=== PATIENT | female | born 1985 | race Caucasian/White ===

== ENCOUNTER 2019-07-05 12:56 | Outpatient (CLI) | payer BC, SELFPAY | END 2019-07-05 12:57 | disposition home or self-care (01) | LOC: ANHSURGERY 12:58 | PROVIDERS: Visit Provider Obstetrics & Gynecology | DX: R10.2 Pelvic and perineal pain (principal) | CPT/HCPCS: 36415; 86850; 86900; 86901 ==

== ENCOUNTER 2019-07-06 00:55 | Day surgery (SDC) | payer BC, SELFPAY ==
[2019-06-29 09:18] VITALS: BMI 24.3
--- NOTE | 2019-07-03 15:46 | PM.IMHP ---
H&P: HPI History of Present Illness Chief complaint: Pelvic Pain Narrative: Clarita Moreno is a 33 year old female who was admitted for diagnostic laparoscopy. She complains of pain fullness and dyspareunia. She is status post hysterectomy with ovaries remain. Ultrasound was unhelpful. Risks and benefits of this procedure reviewed. She read the [employer] handout entitled laparoscopy. She had all questions answered. She asked to proceed. Review of Systems Review of Systems: All systems reviewed & are unremarkable except as noted in HPI and below Meds Home Medications and Allergies Home Medications Medication Instructions Recorded Confirmed Type calcium carbonate [Calcium 600] 600 mg PO DAILY 06/29/19 06/29/19 History cholestyramine (with sugar) 4 g PO HS 06/29/19 06/29/19 History multivitamin 1 tablet PO DAILY 06/29/19 06/29/19 History omeprazole 20 mg PO DAILY 06/29/19 06/29/19 History Allergies Allergy/AdvReac Type Severity Reaction Status Date / Time Penicillins Allergy Severe Anaphylactic Unverified 06/29/19 09:19 Shock sucralfate Allergy Unknown MOUTH Verified 06/29/19 09:19 SWELLING codeine AdvReac Unknown NAUSEA, Verified 06/29/19 09:19 SHAKY Exam Const: General: no acute distress Eyes: General: appearance normal, both eyes and all related structures Neck: Neck: supple and no JVD Thyroid: thyroid normal Resp: Effort & Inspection: normal respiratory effort Auscultation: clear to auscultation bilaterally Cardio: Rate: regular rate Rhythm: regular rhythm GI: Inspection: non-distended GI Palp: Yes Soft to palpation, No Tenderness to palpation present (GI) and No Guarding due to palpation present (GI) Auscultation: normal bowel sounds : External Female Exam: normal external appearance Speculum Exam - Vagina: normal appearance of the vagina Speculum Exam - Cervix: Cervix absent Bimanual exam- vagina & uterus: uterus absent Bimanual Exam- Adnexa, other: tender (bilaterally) Skin: General skin exam: no rashes or lesions noted Extrem: General: normal to inspection and no edema Psych: Mental Status: mental status grossly normal Affect: normal affect Assessment and Plan Additional Plan Impression: Pelvic pain in a patientand status post hysterectomy Plan: Diagnostic laparoscopy
[2019-07-06] VITALS (11 sets, daily range): BP systolic 109–125; BP diastolic 71–98; PULSE 70–110; RESP 14–21; TEMP 36.8–37.3; O2SAT 99–100
--- NOTE | 2019-07-06 07:01 | WPDHPUPDATE1 ---
History and Physical Update Update Date/Time: 07/06/19 07:01 History and Physical has been reviewed, including an updated exam of the patient. There are NO changes in the patient's condition. Risks, benefits, and alternatives have been discussed and questions answered. Patient agrees to proceed with procedure.
--- NOTE | 2019-07-06 08:45 | P.PNAN_ITS ---
Anes - Initial Pre Proc Eval Procedure: Operation Date: 07/06/19 10:00 Proposed Procedures p Diagnostic Laparoscopy - Abdirashid Galicia MD Date/Time: 07/06/19 08:45 Surgeon: Abdirashid Galicia MD Pre Op Diagnosis: Pelvic Pain Patient Data Age: 33 Gender: F Height: 1.63 m Weight: 64.41 kg Allergies Allergy/AdvReac Type Severity Reaction Status Date / Time Penicillins Allergy Severe Anaphylactic Unverified 06/29/19 09:19 Shock sucralfate Allergy Unknown MOUTH Verified 06/29/19 09:19 SWELLING codeine AdvReac Unknown NAUSEA, Verified 06/29/19 09:19 SHAKY Home Medications Medication Instructions Recorded Confirmed Type calcium carbonate [Calcium 600] 600 mg PO DAILY 06/29/19 06/29/19 History cholestyramine (with sugar) 4 g PO HS 06/29/19 06/29/19 History multivitamin 1 tablet PO DAILY 06/29/19 06/29/19 History omeprazole 20 mg PO DAILY 06/29/19 06/29/19 History hydrocodone-acetaminophen [[place]] 1 tablet PO Q4H PRN #30 tablet 07/06/19 Rx Patient hx anesthesia problems: none Family hx anesthesia problems: none [facility] Past Medical History Medical History (Updated 07/06/19 @ 08:46 by Oneil Hernandez DO) Endometriosis Epilepsy history of, no issues in years other than facial tics. No medications GERD (gastroesophageal reflux disease) Hypoglycemia Surgical History Surgical History (Updated 07/05/19 @ 08:50 by Oneil Hernandez DO) History of cholecystectomy History of hysterectomy Anes - Eval Final PreProcedure Day of Procedure 07/06/19 08:45 Patient weight: normal Heart: regular rate and rhythm Lungs: clear to auscultation and normal air movement Airway: Mallampati scale class II Neurological: alert and oriented Last oral intake: >/= 8 hours ASA classification: III Emergent: no Anesthetic plan: proceed Anesthesia type and monitoring: general ETT and standard monitoring Informed Consent: The patient's anesthetic plan and its attendant risks and benefits were discussed with the patient/family/POA. Questions were solicited and answers provided to the satisfaction of the patient/family/POA.
[2019-07-06] MEDS: LACTATED RINGERS 1,000 ML 30 ML IV CONT ×2 (09:00→10:32)
[2019-07-06] MEDS: KETOROLAC 30 MG/ML VIAL (*BKC) IV PUSH (10:17)
--- NOTE | 2019-07-06 10:20 | PM.PROC ---
Procedure Note - Detailed Date of procedure: 07/06/19 Pre-op diagnosis: Pelvic Pain Surgeon: Abdirashid Galicia MD Postop diagnosis: Pelvic pain, endometriosis, adhesions Procedure: Laparoscopy, destruction of endometriosis, lysis of adhesions EBL: 5cc Anesthesia: General endotracheal Findings: Absent uterus. Multiple adhesions. Several areas of powder burn endometriosis. Ovaries appeared within normal limits appendix appeared within normal limits Complications: None Description of procedure: Under general endotracheal anesthesia weighted speculum was placed in posterior fornix of vagina. Sponge stick was placed in the vagina. Bladder was emptied of clear urine. The weighted speculum removed. Gloves were changed. An infraumbilical incision made and the Veress needle passed in the abdomen. The abdomen was filled with CO2 gas [id number]. 5mm trocar advanced under direct visualization assuring no injury. The patient was placed in Trendelenburg and a suprapubic incision made. The 5mm trocar was advanced under direct visualization assuring no injury. About 5cc of serosanguineous fluid was seen in this was irrigated drain. Multiple areas of endometriosis were seen along the right uterosacral ligament and near the area where the previous incisions were made from the uterus. Multiple adhesions were seen on the left completely encasing left ovary and tube. These were sharply dissected till clear. Irrigation was undertaken till clear. No other abnormalities were seen. The lower site removed. The gas removed from the abdomen. The incisions closed with 4 O Monocryl and glue. The patient was awakened and went to recovery in satisfactory condition. All sponge, needle, instrument counts were correct. There were no immediate complications
[2019-07-06] MEDS: MIDAZOLAM HCL 2 MG/2 ML VIAL IV PUSH (11:24)
[2019-07-06] MEDS: ONDANSETRON INJ 4 MG/2 ML VIAL IV PUSH (11:26)
--- NOTE | 2019-07-06 11:26 | SUR.PHASEI ---
PT COUGHING SINCE SHE WOKE FROM SURGERY. PT STATED HER THROAT IS IRRITATED. HOB ELEVATED. LUNGS SOUNDS CLEAR. OXYGEN LEVELS 100 % ON RA. PT GIVEN A SIP OF WATER. 1110- CALLED DR. SEGOVIA AND UPDATED HIM ABOUT COUGHING. HE STATED TO GIVE VERSED 1 MG IVP. HE STATED HER VOCAL CORDS COULD BE IRRITATED. 1120- DR. SEGOVIA BEDSIDE TO SEE PT AND LISTEN TO BREATH SOUNDS. DR. SEGOVIA SPOKE WITH PT. DR. SEGOVIA ORDERED 1 MG OF VERSED WHILE BEDSIDE. VSS
--- NOTE | 2019-07-06 11:57 | SUR.PHASEI ---
1155- PT AWAKE. 2 SURGICAL SITES ON ABD DRY AND INTACT. POLLY PAD DRY. MESH PANTIES PLACED ON PT
== END 2019-07-06 13:10 | disposition home or self-care (01) ==
PROVIDERS: Visit Provider Obstetrics & Gynecology
PROC: (CPT 49320; principal; 2019-07-06 10:00)
DX: N80.3 Endometriosis of pelvic peritoneum (principal); N80.1 Endometriosis of ovary; N80.2 Endometriosis of fallopian tube; N73.6 Female pelvic peritoneal adhesions (postinfective); R10.2 Pelvic and perineal pain; K21.9 Gastro-esophageal reflux disease without esophagitis
CPT/HCPCS: 58662; A9270; J1100; J1885; J2250; J2405; J2704; J3010; J7120

== ENCOUNTER 2019-07-31 06:42 | Outpatient (CLI) | payer BC, SELFPAY ==
--- NOTE | ~2019-07-31 | MR_ITS ---
EXAMINATION: MR brain/brain stem wo/w con DATE: 07/31/2019 09:51 INDICATION: Epilepsy. Nonspecific spells. TECHNIQUE: Magnetic resonance imaging (MRI) of the brain and brainstem was performed without and with 10 mL MultiHance intravenous contrast. Sequences included sagittal and axial T1-weighted FSE, axial diffusion-weighted FS EPI, axial T2*-weighted GRE, axial T2-weighted FLAIR Propeller, axial T2-weight ed Propeller, coronal T2-weighted FLAIR, and coronal T1-weighted 3D FSPGR. Postcontrast axial and cor onal T1-weighted FSE was obtained. Apparent diffusion coefficient (ADC) maps were created. COMPARISON: None. FINDINGS: The hippocampi are normal and symmetric. There is no intracranial hemorrhage, acute infarct ion, or abnormal intracranial mass lesion. The ventricles are normal in size. The paranasal sinuses a re clear. The orbits are normal. The mastoid air cells are normal. IMPRESSION: 1. Normal brain. Reviewed, dictated and finalized at location A. IMPRESSION: 1. Normal brain.
--- NOTE | 2019-07-31 07:00 | NEURO_ITS ---
TEST: SLEEP DEPRIVED ELECTROENCEPHALOGRAM DIAGNOSIS: NONSPECIFIC SPELLS PATIENT NUMBER: [id number] EEG NUMBER: [id number] RECORDING DATE: 07/31/19 CLINICAL HISTORY: Patient reports episodes of right sided eye and mouth twitches. 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 Patient reported she had several episodes during this recording that woke her up. CONDITION OF RECORDING: Awake, drowsy and sleep EEG DESCRIPTION: Basic resting occipital frequency consists of moderate amount of well organized medium voltage 11-12hz alpha mixed with minimal amount of low voltage 15-18hz beta. During drowsiness low voltage beta activity is seen diffusely mixed with waxing and waning posterior alpha rhythms and intermittent 5-7hz theta activity. Bilateral symmetrical sleep activity is seen during sleep. Photic stimulation produced normal drive. Hyperventilation produced normal and symmetrical build-up. Muscle artifacts are seen over the right side. Nonparoxysmal. Nonfocal. Nonlateralizing. IMPRESSION: No significant abnormalities noted. MTDD
[2019-07-31 09:24] LABS: Estimated Glomerular Filt Rate > 60
== END 2019-07-31 06:43 | disposition home or self-care (01) ==
PROVIDERS: PCP Family Medicine; Visit Provider Psychiatry & Neurology Neurology
DX: R56.9 Unspecified convulsions (principal); Z79.899 Other long term (current) drug therapy
CPT/HCPCS: 36415; 70553; 95819; A9577

== ENCOUNTER 2019-10-02 08:29 | Outpatient (CLI) | payer BC, SELFPAY | END 2019-10-02 08:30 | disposition home or self-care (01) | LOC: ANHSURGERY 08:30 | PROVIDERS: PCP Family Medicine; Visit Provider Obstetrics & Gynecology | DX: N83.209 Unspecified ovarian cyst, unspecified side (principal) | CPT/HCPCS: 36415; 86850; 86900; 86901 ==

== ENCOUNTER 2019-10-03 06:12 | Outpatient (CLI) | payer BC, SELFPAY ==
[2019-10-03 16:38] LABS: SARS-CoV-2 RNA PCR Negative
== END 2019-10-03 06:13 | disposition home or self-care (01) ==
LOC: ANHCOVIDDT 06:13
PROVIDERS: PCP Family Medicine; Visit Provider Obstetrics & Gynecology
DX: Z01.818 Encounter for other preprocedural examination (principal); Z11.59 Encounter for screening for other viral diseases
CPT/HCPCS: 87635; C9803; U0003

== ENCOUNTER 2019-10-05 01:11 | Day surgery (SDC) | payer BC, SELFPAY ==
[2019-10-01 14:43] VITALS: BMI 24.0
--- NOTE | 2019-10-03 07:05 | PM.IMHP ---
H&P: HPI History of Present Illness Chief complaint: left ovarian cyst, pelvic pain Narrative: Clarita Moreno is a 33 year old female status post hysterectomy who is a for laparoscopic left salpingo-oophorectomy. Has a complex left ovarian cyst. She has a history of chronic and severe pelvic pain. She finds this discomfort to be unrelenting. Risks and benefits of this procedure reviewed including but not exclusive of , aspiration pneumonia, bleeding, transfusion, perforation injury with injury to bowel, bladder, ureters, or other internal organs with need for open laparotomy. She voiced good understanding. She received the [employer] handout entitled laparoscopy. She had all questions answered. 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 No medications GERD (gastroesophageal reflux disease) Hypoglycemia Surgical History Surgical History History of cholecystectomy History of hysterectomy Meds Home Medications and Allergies Home Medications Medication Instructions Recorded Confirmed Type calcium carbonate [Calcium 600] 600 mg PO DAILY 06/29/19 10/01/19 History cholestyramine (with sugar) 4 g PO HS 06/29/19 10/01/19 History multivitamin 1 tablet PO DAILY 06/29/19 10/01/19 History omeprazole magnesium [Prilosec OTC] 20 mg PO DAILY 10/01/19 10/01/19 History Allergies Allergy/AdvReac Type Severity Reaction Status Date / Time Penicillins Allergy Severe Anaphylactic Unverified 07/06/19 09:08 Shock sucralfate Allergy Severe MOUTH Verified 10/01/19 14:40 SWELLING codeine AdvReac Intermediate NAUSEA, Verified 10/01/19 14:40 SHAKY Exam Const: General: no acute distress Eyes: General: appearance normal, both eyes and all related structures Neck: Neck: supple and no JVD Thyroid: thyroid normal Resp: Effort & Inspection: normal respiratory effort Auscultation: clear to auscultation bilaterally Cardio: Rate: regular rate Rhythm: regular rhythm GI: Inspection: non-distended GI Palp: Yes Soft to palpation, No Tenderness to palpation present (GI) and No Guarding due to palpation present (GI) Auscultation: normal bowel sounds : General: Yes bladder normal to inspection External Female Exam: normal external appearance Speculum Exam - Vagina: normal appearance of the vagina Speculum Exam - Cervix: normal appearance of the cervix ( cervix is absent) Bimanual exam- vagina & uterus: normal bimanual exam ( uterus is absent) Bimanual Exam- Adnexa, other: Adnexal mass present ( left-sided adnexal fullness is noted) Skin: General skin exam: no rashes or lesions noted Extrem: General: normal to inspection and no edema Psych: Mental Status: mental status grossly normal Affect: normal affect Assessment and Plan Additional Plan impression: Complex left ovarian cyst Plan: Laparoscopic left salpingo-oophorectomy
[2019-10-05] VITALS (15 sets, daily range): BP systolic 110–135; BP diastolic 69–106; PULSE 59–90; RESP 12–20; TEMP 36.3–36.9; O2SAT 98–100
--- NOTE | 2019-10-05 06:49 | WPDHPUPDATE1 ---
History and Physical Update Update Date/Time: 10/05/19 06:49 History and Physical has been reviewed, including an updated exam of the patient. There are NO changes in the patient's condition. Risks, benefits, and alternatives have been discussed and questions answered. Patient agrees to proceed with procedure.
[2019-10-05] MEDS: LACTATED RINGERS 1,000 ML 30 ML IV CONT ×2 (09:25→11:23)
--- NOTE | 2019-10-05 09:29 | P.PNAN_ITS ---
Anes - Initial Pre Proc Eval Procedure: Operation Date: 10/05/19 11:00 Proposed Procedures p Laparoscopic Left Salpingo-Oophorectomy - Abdirashid Galicia MD Date/Time: 10/05/19 09:29 Surgeon: Abdirashid Galicia MD Pre Op Diagnosis: left ovarian cyst, pelvic pain Patient Data Age: 33 Gender: F Height: 5 ft 4 in Weight: 63.63 kg Allergies Allergy/AdvReac Type Severity Reaction Status Date / Time Penicillins Allergy Severe Anaphylactic Unverified 07/06/19 09:08 Shock sucralfate Allergy Severe MOUTH Verified 10/01/19 14:40 SWELLING codeine AdvReac Intermediate NAUSEA, Verified 10/01/19 14:40 SHAKY Home Medications Medication Instructions Recorded Confirmed Type calcium carbonate [Calcium 600] 600 mg PO DAILY 06/29/19 10/01/19 History cholestyramine (with sugar) 4 g PO HS 06/29/19 10/01/19 History multivitamin 1 tablet PO DAILY 06/29/19 10/01/19 History omeprazole magnesium [Prilosec OTC] 20 mg PO DAILY 10/01/19 10/01/19 History hydrocodone-acetaminophen [[place]] 1 tablet PO Q4H PRN #20 tablet 10/05/19 Rx Patient hx anesthesia problems: none Family hx anesthesia problems: none PMFSH Past Medical History Medical History Endometriosis Epilepsy history of, no issues in years other than facial tics. No medications GERD (gastroesophageal reflux disease) Hypoglycemia Surgical History Surgical History History of cholecystectomy History of hysterectomy Anes - Eval Final PreProcedure Day of Procedure 10/05/19 09:29 Patient weight: normal Heart: regular rate and rhythm Lungs: clear to auscultation Airway: Mallampati scale class II Neurological: alert and oriented Last oral intake: >/= 8 hours ASA classification: II Emergent: no Anesthetic plan: proceed Anesthesia type and monitoring: general ETT and standard monitoring Informed Consent: The patient's anesthetic plan and its attendant risks and benefits were discussed with the patient/family/POA. Questions were solicited and answers provided to the satisfaction of the patient/family/POA.
[2019-10-05] MEDS: FAMOTIDINE 20 MG/2 ML VIAL IV PUSH (10:21)
[2019-10-05] MEDS: ONDANSETRON INJ 4 MG/2 ML VIAL IV PUSH (10:24)
[2019-10-05] MEDS: KETOROLAC 30 MG/ML VIAL (*BKC) IV PUSH (11:08)
--- NOTE | 2019-10-05 11:10 | PM.PROC ---
Procedure Note - Detailed Date of procedure: 10/05/19 Pre-op diagnosis: left ovarian cyst, pelvic pain Surgeon: Abdirashid Galicia MD Postop diagnosis complex left ovarian cyst/pelvic pain Procedure: Laparoscopic left salpingo-oophorectomy Anesthesia: General endotracheal EBL: 5cc Findings: Absent uterus normal-appearing right ovary. Moderate size left ovarian cyst with adhesions to the colon Complications: None Description of procedure: The patient was prepped and draped in the normal sterile fashion placed in the dorsal lithotomy position. Under excellent general endotracheal anesthesia weighted speculum placed in posterior fornix vagina. Sponge stick was placed and the bladder drained of clear urine. Weighted speculum was removed. The gloves were changed A supraumbilical incision was made the Veress needle passed in the abdomen. The abdomen was filled with CO2 gas [id number]. 5mm trocar was advanced under direct visualization assuring no injury. The patient was placed in Trendelenburg and a suprapubic incision made. The 5mm trocar advanced under direct visualization and no injury seen. A left lower quadrant incision made the 10mm trocar advanced under direct visualization. The left fallopian tube and ovary were complex mass using sharp dissection the these were from the colon and the omentum. The infundibulopelvic structure was skeletonized. This was clamped, burned, cut. The ovary complex was then placed in the Endo-Catch and removed through the left lower quadrant incision. Hemostasis was assured lower sites removed after gas removed from the abdomen. The upper site removed the incisions closed with 4 O Monocryl and glue. All sponge, needle, instrument counts were correct. There were no immediate complications. Patient went to recovery in satisfactory condition
--- NOTE | 2019-10-05 12:20 | SUR.PHASEI ---
1210; PT RESTING QUIETLY. CALM. RELAXED. EYES CLOSED. ASKED PT HOW PAIN IS. STATES 03/01. ASSESSMENT UNCHANGED. FENTANYL GIVEN PRN
--- NOTE | 2019-10-05 12:43 | SUR.PHASEI ---
1240; PT DOZING. EYES CLOSED
--- NOTE | 2019-10-05 13:28 | SUR.PHASEI ---
1320; SPOUSE UPDATED. PT RESTING QUIETLY. DOZING IN INTERVALS STATES PAIN 10/30. PT DOES NOT WANT TO SIT IN A RECLINER YET.
[2019-10-05] MEDS: SCOPOLAMINE 1.5 MG PATCH TRANSDERM (14:18)
== END 2019-10-05 15:37 | disposition home or self-care (01) ==
PROVIDERS: PCP Family Medicine; Visit Provider Obstetrics & Gynecology
PROC: (CPT 49320; principal; 2019-10-05 11:00)
DX: N83.202 Unspecified ovarian cyst, left side (principal); R10.2 Pelvic and perineal pain
CPT/HCPCS: 58661; 88305; A9270; J1100; J1885; J2250; J2405; J2704; J2710; J3010; J7120

== ENCOUNTER 2020-11-14 22:02 | Emergency (ER) | payer BC, SELFPAY ==
[2020-11-14 22:04] VITALS: BP 115/84; PULSE 70; RESP 18; TEMP 37; O2SAT 100
[2020-11-14 22:21] LABS: Basophils Percent Auto 0.4 % (0.2-1.2); Eosinophils Percent Auto 0.5 % (0-4.4); Hematocrit 37.6 % (37.0-47.0); Hemoglobin 12.4 g/dL (12.0-15.0); Immature Granulocyte Absolute 0.02 K/mm3 (0.00-0.031); Immature Granulocyte Percent A 0.3 % (0-0.5); Lymphocytes Absolute Auto 3.75 K/mm3 (0.9-3.2); Lymphocytes Percent Auto 47.8 % (18.3-44.2); Mean Corpuscular Hemoglobin 30.1 pg (26-34); Mean Corpuscular Volume 91.3 fl (80-100); Mean Platelet Volume 10.2 fl (7.4-10.4); Monocytes Absolute Auto 0.6 K/mm3 (0.1-0.6); Neutrophils Absolute Auto 3.5 K/mm3 (1.3-6.7); Platelet Count Result 260 k/mm3 (150-375); Red Blood Count 4.12 M/mm3 (4.2-5.4); Red Cell Distribution Width 12.2 % (11.5-14.5); White Blood Count 7.8 K/mm3 (4.5-10.0)
--- NOTE | 2020-11-14 22:30 | ED.ABDPAIN ---
HPI - Abdominal Pain General Chief Complaint: Abdominal Pain Stated Complaint: abd pain Time Seen by Provider: 11/14/20 22:27 History of Present Illness HPI narrative: RLQ abdominal pain for several days. Worse today. She has seen her OBGYN for this pain previously. He told her that her right ovary was tender. He tested for STDs which she reports were negative. He ordered an ultrasound which she has not gotten yet. She presents now because she noted some blood in her underwear. She is not sure where it originated. Related Data Home Medications Medication Instructions Recorded Confirmed calcium carbonate [Calcium 600] 600 mg PO DAILY 06/29/19 10/01/19 cholestyramine (with sugar) 4 g PO HS 06/29/19 10/01/19 multivitamin 1 tablet PO DAILY 06/29/19 10/01/19 omeprazole magnesium [Prilosec OTC] 20 mg PO DAILY 10/01/19 10/01/19 Allergies Allergy/AdvReac Type Severity Reaction Status Date / Time Penicillins Allergy Severe Anaphylactic Verified 11/14/20 22:08 Shock sucralfate Allergy Severe MOUTH Verified 11/14/20 22:08 SWELLING codeine AdvReac Intermediate NAUSEA, Verified 11/14/20 22:08 ALEX Review of Systems Review of Systems: All systems reviewed & are unremarkable except as noted in HPI and below Constitutional: Constitutional: Denies fever(s) ENT: Denies dizziness Cardiovascular: Cardiovascular: Denies chest pain Respiratory: Respiratory: Denies dyspnea Genitourinary: Genitourinary: Denies hematuria and Denies dysuria Neurologic: Reports system reviewed and no additional complaints, except as documented [facility] Past Medical History Medical History Endometriosis Epilepsy history of, no issues in years other than facial tics. No medications GERD (gastroesophageal reflux disease) Hypoglycemia Surgical History Surgical History History of cholecystectomy History of hysterectomy Exam Const: General: healthy appearing, no acute distress and alert Orientation/consciousness: patient oriented x3 HENMT: Head: normal to inspection Neck: Neck: normal visual inspection Resp: Effort & Inspection: normal respiratory effort Auscultation: clear to auscultation bilaterally, no rales, no rhonchi and no wheezes Cardio: Jugular venous distension: no JVD Rate: regular rate Rhythm: regular rhythm Heart sounds: no murmurs GI: Inspection: non-distended GI Palp: Yes Soft to palpation and Yes Tenderness to palpation present (GI) (RLQ) : Speculum Exam - Vagina: abnormal vaginal discharge white Skin: General skin exam: normal color Neuro: General: patient oriented x3 and moves all extremities Speech: normal speech Extrem: General: no edema Psych: Appearance: well kempt Affect: Anxious affect present Course Vital Signs Vital signs: Vital Signs Temperature 37.0 C 11/14/20 22:04 Pulse Rate 70 11/14/20 22:04 Respiratory Rate 18 11/14/20 22:04 Blood Pressure 115/84 11/14/20 22:04 Pulse Oximetry 100 11/14/20 22:04 Temperature 37.0 C 11/14/20 22:04 Pulse Rate 73 11/15/20 01:53 Respiratory Rate 18 11/15/20 01:53 Blood Pressure 118/79 11/15/20 01:53 Pulse Oximetry 97 11/15/20 01:53 MDM - Abdominal Pain MDM Narrative Medical decision making narrative: Vaginal discharge consistent with a yeast infection. She had STD testing done very recently, so I do not think repeating this is necessary. She will follow-up with her OB in a few days and they can reevaluate at that time. Medical Records Attestation: I reviewed the patient's medical records. Lab Data Result diagrams: 11/14/20 22:10 11/14/20 22:10 Labs: Lab Results 11/14/20 11/14/20 11/15/20 Range/Units 22:10 22:10 00:00 WBC 7.8 (4.5-10.0) K/mm3 RBC 4.12 L (4.2-5.4) M/mm3 Hgb 12.4 (12.0-15.0) g/dL Hct 37.6 (37.0-47.0) % MCV 91.3
[2020-11-14 22:31] LABS: Alanine Aminotransferase 12 U/L (4-35); Albumin Level 4.3 g/dL (3.5-5.1); Alkaline Phosphatase 76 U/L (38-126); Anion Gap 6 mmol/L (8-16); Aspartate Amino Transferase 20 U/L (14-36); Bilirubin,Total 0.2 mg/dL (0.2-1.3); Blood Urea Nitrogen 8 mg/dL (7-17); Calcium 9.5 mg/dL (8.4-10.2); Carbon Dioxide 30 mmol/L (22-30); Chloride 105 mmol/L (98-107); Estimated Glomerular Filt Rate > 60; Glucose 100 mg/dL (65-105); Lipase 93 U/L (23-300); Potassium 3.6 mmol/L (3.4-5.0); Sodium 141 mmol/L (137-145)
[2020-11-15 00:09] VITALS: BP 114/69; PULSE 71; RESP 18; O2SAT 98
[2020-11-15 00:31] LABS: Add Urine Microscopic? NO; Appearance Urine Clear (Clear); Bilirubin Urine Negative (Negative); Blood Urine Negative (Negative); Color Urine Straw (Yellow); Glucose Urine UA Negative (Negative); Ketones Urine Negative (Negative); Leukocyte Esterase Ur Negative LEU/UL (Negative); Nitrate Urine Negative (Negative); Protein Urine Negative (Negative); Specific Grav Ur 1.006 (1.001-1.035); Urobilinogen Urine Negative mg/dL (<2.0)
[2020-11-15] MEDS: FLUCONAZOLE 150 MG TABLET PO (01:22)
[2020-11-15 01:53] VITALS: BP 118/79; PULSE 73; RESP 18; O2SAT 97
== END 2020-11-15 01:56 | disposition home or self-care (01) ==
PROVIDERS: Emergency Provider Emergency Medicine; PCP Family Medicine
DX: B37.3 Candidiasis of vulva and vagina (principal)
CPT/HCPCS: 36415; 80053; 81003; 83690; 85025; 99283; A9270

== ENCOUNTER → 2021-03-17 01:31 | Outpatient (CLI) | payer BC, SELFPAY ==
[2021-03-17 18:23] LABS: SARS-CoV-2 RNA PCR Negative
== END ==
PROVIDERS: PCP Family Medicine; Visit Provider Obstetrics & Gynecology
DX: Z01.812 Encounter for preprocedural laboratory examination (principal); Z20.822 Contact with and (suspected) exposure to COVID-19
CPT/HCPCS: C9803; U0003; U0005

== ENCOUNTER 2021-03-17 08:05 | Outpatient (CLI) | payer BC, SELFPAY | END 2021-03-17 08:06 | disposition home or self-care (01) | PROVIDERS: PCP Family Medicine; Visit Provider Obstetrics & Gynecology | DX: R10.2 Pelvic and perineal pain (principal); Z01.818 Encounter for other preprocedural examination | CPT/HCPCS: 36415; 86850; 86900; 86901 ==

== ENCOUNTER 2021-03-20 01:43 | Day surgery (SDC) | payer BC, SELFPAY ==
[2021-03-16 13:28] VITALS: BMI 23.6
--- NOTE | 2021-03-18 07:45 | PM.IMHP ---
H&P: HPI History of Present Illness Date/Time: 03/18/21 07:45 35-year-old female admitted for laparoscopic RSO secondary to severe pelvic pain and ovarian cyst. This patient has previously had hysterectomy and left salpingo-oophorectomy. She understands this will make her permanently menopausal. Risks and benefits reviewed including but not exclusive of , aspiration pneumonia, bleeding, transfusion, perforation injury to bowel, bladder, ureters, or other internal organs with need for open laparotomy. She received the A[employer]G handout entitled laparoscopy. She had all questions answered and asked to proceed Chief Complaint: Pelvic pain and right ovarian cyst Review of Systems Review of Systems: All systems reviewed & are unremarkable except as noted in HPI and below PMFSH Past Medical History Medical History Chronic diarrhea Endometriosis Epilepsy history of, no issues in years other than facial tics. No medications GERD (gastroesophageal reflux disease) Hypoglycemia Surgical History Surgical History History of cholecystectomy History of hysterectomy Social History Social History Smoking status: Never smoker Second hand tobacco smoke exposure: No Alcohol intake: never Substance use: never Substance use type: does not use Spiritual care concerns: No Meds Home Medications and Allergies Home Medications Medication Instructions Recorded Confirmed Type ascorbic acid (vitamin C) 500 mg 500 mg PO DAILY 01/20/21 03/16/21 History capsule cholestyramine (with sugar) 4 gram 4 g PO HS #60 ea 01/20/21 03/16/21 Rx powder for susp in a packet omega [id number]-[id number]-fish oil 60 mg-90 1 cap PO DAILY 01/20/21 03/16/21 History mg-500 mg capsule calcium carbonate-vitamin D3 1 tablet PO DAILY 03/16/21 03/16/21 History [calcium-vitamin D3] Allergies Allergy/AdvReac Type Severity Reaction Status Date / Time Penicillins Allergy Severe Anaphylactic Verified 03/16/21 13:24 Shock sucralfate Allergy Severe MOUTH Verified 03/16/21 13:24 SWELLING codeine AdvReac Intermediate NAUSEA, Verified 03/16/21 13:24 SHAKY Exam Const: General: no acute distress Eyes: General: appearance normal, both eyes and all related structures Neck: Neck: supple and no JVD Thyroid: thyroid normal Resp: Effort & Inspection: normal respiratory effort Auscultation: clear to auscultation bilaterally Cardio: Rate: regular rate Rhythm: regular rhythm GI: Inspection: non-distended GI Palp: Yes Soft to palpation, No Tenderness to palpation present (GI) and No Guarding due to palpation present (GI) Auscultation: normal bowel sounds : External Female Exam: normal external appearance Speculum Exam - Vagina: normal appearance of the vagina Speculum Exam - Cervix: Cervix absent Bimanual exam- vagina & uterus: uterus absent Bimanual Exam- Adnexa, other: tender Skin: General skin exam: no rashes or lesions noted Extrem: General: normal to inspection and no edema Psych: Mental Status: mental status grossly normal Affect: normal affect Assessment and Plan Additional Plan Impression: Pelvic pain in a patient status post hysterectomy and LSO Plan: Laparoscopic RSO
--- NOTE | 2021-03-19 14:31 | P.PNAN_ITS ---
Anes - Initial Pre Proc Eval Procedure: Operation Date: 03/20/21 07:30 Proposed Procedures p Laparoscopic Right Salpingo-Oophorectomy - Abdirashid Galicia MD Date/Time: 03/19/21 14:31 Surgeon: Abdirashid Galicia MD Pre Op Diagnosis: pelvic pain, adhesions, Ovarian Cyst Patient Data Age: 35 Gender: F Height: 1.64 m Weight: 63.5 kg Allergies Allergy/AdvReac Type Severity Reaction Status Date / Time Penicillins Allergy Severe Anaphylactic Verified 03/20/21 06:22 Shock sucralfate Allergy Severe MOUTH Verified 03/20/21 06:22 SWELLING codeine AdvReac Intermediate NAUSEA, Verified 03/20/21 06:22 SHAKY Home Medications Medication Instructions Recorded Confirmed Type ascorbic acid (vitamin C) 500 mg 500 mg PO DAILY 01/20/21 03/20/21 History capsule cholestyramine (with sugar) 4 gram 4 g PO HS #60 ea 01/20/21 03/20/21 Rx powder for susp in a packet omega 8-sen-lfq-fish oil 60 mg-90 1 cap PO DAILY 01/20/21 03/20/21 History mg-500 mg capsule calcium carbonate-vitamin D3 1 tablet PO DAILY 03/16/21 03/20/21 History [calcium-vitamin D3] hydrocodone-acetaminophen 1 tablet PO Q4H PRN #30 tablet 03/20/21 Rx Patient hx anesthesia problems: none Family hx anesthesia problems: none Results Review: All pre-operative results and documents have been reviewed as part of the pre-operative evaluation. [facility] Past Medical History Medical History Chronic diarrhea Endometriosis Epilepsy history of, no issues in years other than facial tics. No medications GERD (gastroesophageal reflux disease) Hypoglycemia Surgical History Surgical History History of cholecystectomy History of hysterectomy Social History Social History Smoking status: Never smoker Second hand tobacco smoke exposure: No Alcohol intake: never Substance use: never Substance use type: does not use Living arrangements: with family Spiritual care concerns: No Anes - Eval Final PreProcedure Day of Procedure 03/19/21 14:31 Patient weight: normal Heart: regular rate and rhythm Lungs: clear to auscultation and normal air movement Airway: Mallampati scale class II Neurological: alert and oriented Last oral intake: >/= 8 hours ASA classification: III Emergent: no Anesthetic plan: proceed Anesthesia type and monitoring: general ETT and standard monitoring Results Review: All pre-operative results and documents have been reviewed as part of the pre-operative evaluation. Informed Consent: The patient's anesthetic plan and its attendant risks and benefits were discussed with the patient/family/POA. Questions were solicited and answers provided to the satisfaction of the patient/family/POA.
[2021-03-20] VITALS (14 sets, daily range): BP systolic 101–129; BP diastolic 58–100; PULSE 63–88; RESP 12–20; TEMP 36.1–37.1; O2SAT 96–100
[2021-03-20] MEDS: ACETAMINOPHEN 500 MG TABLET 1000 MG PO (06:41)
[2021-03-20] MEDS: LACTATED RINGERS 1,000 ML 30 ML IV CONT ×2 (06:50→09:01)
[2021-03-20] MEDS: KETOROLAC 15 MG/ML VIAL (*BKC) IV PUSH (06:53)
--- NOTE | 2021-03-20 06:55 | WPDHPUPDATE1 ---
History and Physical Update Update Date/Time: 03/20/21 06:55 History and Physical has been reviewed, including an updated exam of the patient. There are NO changes in the patient's condition. Risks, benefits, and alternatives have been discussed and questions answered. Patient agrees to proceed with procedure.
--- NOTE | 2021-03-20 08:03 | P.OP_ITS ---
Procedure Note - Detailed Date of Procedure 03/20/21 Pre-op Diagnosis pelvic pain, adhesions, Ovarian Cyst Post-op Diagnosis same Procedure Performed Laparoscopic right oophorectomy Surgeon Abdirashid Galicia MD Anesthesia general Indications This is a 35-year-old status post hysterectomy in bilateral salpingectomy and left oophorectomy the admitted with complex right ovarian cyst and pelvic pain Findings Absent uterus left ovary and tubes complex right ovarian cyst was seen Description of Procedure The patient was prepped draped in normal sterile fashion placed in the dorsal lithotomy position. Under excellent general endotracheal anesthesia sponge stick was placed in the vagina and the bladder drained of clear urine. The weighted speculum was removed and the gloves were changed. An infraumbilical incision made the Veress needle passed in the abdomen. The abdomen filled with CO2 gas [id number]. The 5mm trocar advanced under direct visualization and no injury seen. Patient placed in Trendelenburg and a suprapubic incision made. The 5mm trocar advanced under direct visualization assuring no injury. A right lower quadrant incision made the 10mm trocar advanced under direct visualization assuring no injury. Complex right ovarian cyst was seen the infundibulopelvic structure was then skeletonized. This was clamped, burned, cut with the LigaSure and placed in an Endo-Catch. This was re moved through the right lower quadrant incision. No other abnormalities were seen in photo documentation undertaken. The lower sites removed after gas removed from the abdomen. The incisions closed with 4-0 Monocryl and glue. All sponge, needle, instrument counts were correct. There were no immediate complications Estimated Blood Loss 5 Drains No Packing No Pathology yes Complications No immediate complications Condition stable Disposition PACU
[2021-03-20] MEDS: fentaNYL CITRATE INJ (*CRX) 100 MCG/2 ML VIAL 25 MCG IV PUSH ×8 (08:32→09:45)
[2021-03-20] MEDS: MIDAZOLAM HCL (*CRX) 2 MG/2 ML VIAL IV PUSH (08:50)
[2021-03-20] MEDS: ONDANSETRON INJ 4 MG/2 ML VIAL IV PUSH (10:11)
[2021-03-20] MEDS: diphenhydrAMINE HCl INJ 50 MG/ML VIAL 25 MG IV PUSH (11:00)
[2021-03-20] MEDS: SCOPOLAMINE 1.5 MG PATCH TRANSDERM (11:01)
== END 2021-03-20 12:18 | disposition home or self-care (01) ==
PROVIDERS: PCP Family Medicine; Visit Provider Obstetrics & Gynecology
PROC: (CPT 49320; principal; 2021-03-20 07:30)
DX: R10.2 Pelvic and perineal pain (principal); N73.6 Female pelvic peritoneal adhesions (postinfective); N83.201 Unspecified ovarian cyst, right side; R19.7 Diarrhea, unspecified; N80.9 Endometriosis, unspecified; K21.9 Gastro-esophageal reflux disease without esophagitis; E16.2 Hypoglycemia, unspecified
CPT/HCPCS: 58661; 88305; A9270; J1100; J1200; J1885; J2250; J2405; J2704; J2710; J3010; J7030; J7120; Q9968

== ENCOUNTER 2023-02-28 11:20 | Outpatient (CLI) | payer OTHER, SELFPAY ==
--- NOTE | ~2023-02-28 | MMUS_ITS ---
EXAMINATION: MM diagnostic crystal BI w sal, US breast BI limited HISTORY: Outside screening mammogram report of right breast 10:00 5 mm well-defined nodule underneath the skin surface approximately 3 cm from nipple and approximately 3-4:00 left breast 5 mm well-defin ed nodule approximately 6 cm from nipple TECHNIQUE: Additional 3-D tomosynthesis images of both breasts were performed and synthetic 2-D image s were generated. CAD analysis was submitted and interpreted. High resolution targeted bilateral drea st ultrasound was performed. COMPARISON: 12/09/2022 bilateral screening mammogram BREAST PARENCHYMAL COMPOSITION: There are scattered areas of fibroglandular density. FINDINGS: MAMMOGRAPHIC FINDINGS: Superficial subcutaneous circumscribed approximately 2 x 4 mm low-density opacity is noted in the out er mid right breast. The mammographic appearance is benign. No suspicious mass or architectural distortion, malignant calcification, skin thickening or retractio n of either breast is detected. ULTRASOUND: Right breast: Approximately 1.9 x 3.1 x 3 x 5 mm circumscribed sonolucency is noted superficially, wi thout internal vascularity or posterior shadowing, benign in appearance, likely corresponding to the right breast mammographic finding. No suspicious mass or shadowing is noted otherwise in the the right breast from 8:00 to 10:00 of left breast from 3:00 to 4:00. IMPRESSION: 1. Benign finding 2. Routine annual mammographic screening is recommended BI-RADS Category 2: Benign finding(s). Reviewed, dictated and finalized at location A. IMPRESSION: 1. Benign finding 2. Routine annual mammographic screening is recommended BI-RADS Category 2: Benign finding(s).
== END 2023-02-28 11:21 | disposition home or self-care (01) ==
LOC: ANHIMG 11:25
PROVIDERS: PCP Family Medicine; Visit Provider Obstetrics & Gynecology
DX: R92.8 Other abnormal and inconclusive findings on diagnostic imaging of breast (principal)
CPT/HCPCS: 36415; 76642; 77062; 77066; 84450; 84460; G0279

== ENCOUNTER 2023-02-28 16:44 | Outpatient (CLI) | payer OTHER, SELFPAY ==
[2023-02-28 17:48] LABS: Alanine Aminotransferase 17 U/L (6-35); Aspartate Amino Transferase 44 U/L (14-36)
== END 2023-02-28 16:45 | disposition home or self-care (01) ==
LOC: ANHLAB 16:46
PROVIDERS: PCP Family Medicine; Visit Provider Podiatrist Foot & Ankle Surgery
DX: B35.1 Tinea unguium (principal)
CPT/HCPCS: 36415; 84450; 84460

== ENCOUNTER 2024-01-25 14:45 | Outpatient (CLI) | payer BC, SELFPAY ==
[2024-01-25 15:16] LABS: Hematocrit 41.1 % (37.0-47.0); Hemoglobin 13.9 g/dL (12.0-15.0); Mean Corpuscular HGB Conc 33.8 g/dl (32-36); Mean Corpuscular Hemoglobin 31.4 pg (26-34); Mean Corpuscular Volume 92.8 fl (80-100); Mean Platelet Volume 10.5 fl (7.4-10.4); Platelet Count Result 244 k/mm3 (150-375); Red Blood Count 4.43 M/mm3 (4.2-5.4); White Blood Count 6.1 K/mm3 (4.5-10.0)
[2024-01-25 15:23] LABS: Add Urine Microscopic? YES; Appearance Urine Clear (Clear); Bacteria Urine 1+ /hpf; Bilirubin Urine Negative (Negative); Blood Urine Trace (Negative); Color Urine Yellow (Yellow); Glucose Urine UA Negative (Negative); Ketones Urine Negative (Negative); Leukocyte Esterase Ur Negative LEU/UL (Negative); Nitrate Urine Negative (Negative); Non Pathogenic Casts 0-2; Protein Urine Negative (Negative); Specific Grav Ur 1.018 (1.001-1.035); Squamous Epithelial Cell Urine Few /hpf (Few); Urobilinogen Urine 0.2 mg/dL (<2.0); WBC Urine 0-5 /hpf (0-3); pH Urine 6.5 (5.0-9.0)
[2024-01-25 15:36] LABS: Alanine Aminotransferase 21 U/L (6-35); Albumin Level 4.2 g/dL (3.5-5.1); Alkaline Phosphatase 69 U/L (38-126); Anion Gap 7 mmol/L (4-12); Aspartate Amino Transferase 28 U/L (14-36); Bilirubin,Total 0.3 mg/dL (0.2-1.3); Blood Urea Nitrogen 10 mg/dL (7-17); Carbon Dioxide 33 mmol/L (22-30); Chloride 100 mmol/L (98-107); Estimated Glomerular Filt Rate > 60; Glucose 85 mg/dL (65-110); Lipase 98 U/L (23-300); Potassium 3.7 mmol/L (3.4-5.0); Sodium 140 mmol/L (137-145)
== END 2024-01-25 14:46 | disposition home or self-care (01) ==
LOC: ANHLAB 14:48
PROVIDERS: PCP Family Medicine; Visit Provider Nurse Practitioner Family
DX: J18.9 Pneumonia, unspecified organism (principal); R35.0 Frequency of micturition; A41.9 Sepsis, unspecified organism
CPT/HCPCS: 36415; 80053; 81001; 83690; 85027

== ENCOUNTER 2025-02-05 06:54 | Outpatient (CLI) | payer OTHER, SELFPAY ==
--- OUTSIDE RECORDS SUMMARY | 2025-02-05 06:58 | XMS_ITS | Clinical Summary ---
Author Organization [facility] Address [address] [place] [id number] Care Team Providers Care Seam Rubber Name Role Phone Estiven Pringle DO Primary Care Provider + Allergies Active Allergy Reactions Criticality Noted Date Comments Codeine Unknown Low 07/24/2019 Penicillins Anaphylaxis High 06/17/2003 Sucralfate Swelling Medium 01/12/2013 Medications cholestyramine (QUESTRAN) 4 gram packet Take 1 packet by mouth nightly 07/03/2019 Active MULTIVITAMIN ORAL Take 1 tablet by mouth daily Active calcium carbonate (CALCIUM 500 ORAL) Take 500 mg by mouth daily Active omeprazole (PriLOSEC) 20 mg capsule Take 20 mg by mouth daily Active Active Problems Problem Noted Date Diagnosed Date Fatigue 11/05/2019 Overview (11/05/2019): Complete blood work Assessment & Plan (11/05/2019 4:00 PM CDT): Complete blood work up Hypoglycemia 07/24/2019 Assessment & Plan (07/24/2019 4:40 PM LEATHER SPLITTER): Patient is well controlled. Continue current treatment. Anemia 07/24/2019 Assessment & Plan (07/24/2019 4:39 PM LEATHER SPLITTER): Will track down labs Epilepsy 07/24/2019 Assessment & Plan (11/05/2019 3:53 PM CDT): Sees Dr. Rubio Assessment & Plan (07/24/2019 4:39 PM LEATHER SPLITTER): Hx of epilepsy Seeing Dr. Rubio Endometriosis 07/24/2019 Assessment & Plan (11/05/2019 3:53 PM CDT): Sees child watch attendant Assessment & Plan (07/24/2019 4:39 PM LEATHER SPLITTER): Recent hysterectomy Ovaries remain Supervision of other high ri sk pregnancies, unspecified trimester 01/12/2013 Overview (11/05/2019): Dating by wk documented ultrasound B+/I/-/-; HIV NR QS wnl GBS neg Gastroenteritis 02/13/2010 Overview (11/05/2019): 02/07/10-02/09/10 ADMIT->PHYSICIST SOLID STATE ([facility]) AND GI ([facility]) CONSULTED->SELF LIMITED GASTROENTERITIS SUSPECTED 02/12/10 SXS RESOLVED->PT CONCERNED ABOUT SPECIFIC DX->REQUESTED HOSP RECORDS- >WILL CALL AFTER REVIEW / FUP WITH GI RECOMMENDED IF RECURRENT SXS History of gestational diabetes 02/13/2010 Resolved Problems Problem Noted Date Diagnosed Date Resolved Date Wrist pain, acute, right 07/24/2019 Assessment & Plan (07/24/2019 4:45 PM LEATHER SPLITTER): Sl edema Right wrist No erythema xr GDM, class A1 01/12/2013 11/05/2019 Overview (11/05/2019): H/o GDM in G3 GCT 182 GTT normal in first trimester GTT at 27w: 81, 187, 187, 89 Not requiring medications contractions 01/12/2013 020 Spells 02/13/2010 11/05/2019 Overview (11/05/2019): 01/30 INTERMITTENT SHAKING SPELLS->ARRANGED LABS, PROVIDED GLUCOMETER TO R/O HYPOGLYCEMIA Immunizations Immunization Administration Dates Next Due Influenza, Unspecified 03/17/2013 Tdap 03/17/2013 Surgical History Surgery Date Site/Laterality Comments CHOLECYSTECTOMY SECTION HYSTERECTOMY 10/21/2018 - 11/19/2018 LAPAROSCOPIC ENDOMETRIOSIS FULGURATION OOPHORECTOMY 10/05/2019 Left Medical History Medical History Date Comments Anemia Hypoglycemia Endometriosis Epilepsy (HCC) 2000 Epilepsy Family History Medical History Relation Name Comments No Known Problems Brother 1 No Known Problems Brother 2 No Known Problems Brother 3 No Known Problems Daughter Heart attack Father Diabetes Maternal Grandmother Stroke Mother Diabetes Mother's Brother Diabetes Mother's Sister No Known Problems Sister 1 No Known Problems Sister 2 No Known Problems Son 1 No Known Problems Son 2 Relation Name Status Comments Brother 1 Alive Brother 2 Alive Brother 3 Alive Daughter Alive Father Maternal Grandmother Mother Alive Mother's Brother Mother's Sister Sister 1 Alive Sister 2 Alive Son 1 Alive Son 2 Alive Social History Tobacco Use Types Packs/Day Years Used Date Smoking Tobacco: Never Smokeless Tobacco: Never Alcohol Use Standard Drinks/Week Comments Never 0 (1 standard drink = 0.6 oz pur e alcohol) AUDIT-C Answer Date Recorded Q1: How often do you have a drink containing alc ohol? Never 07/24/2019 Average Number of Drinks Not on file 020 Frequency of Binge Drinking Not on file 07/2019 PHQ-2 Answer Date Recorded PHQ-2 Total Score (If total score is 3 or more points, staff should administer the PHQ-9) 1 11/05/2019 Personal Safety Answer Date Recorded Getting School Help Needed Not on file 07/01 Comments Unknown Sex and Gender Information Value Date Recorded Sex Assigned at Not on file Legal Sex Female 11:23 AM LEATHER SPLITTER Gender Identity Not on file Sexual Orientation Not on file Obstetrics History Last Filed Vital Signs Vital Sign Reading Time Taken Comments Blood Pressure 118/78 11/05/2019 3:18 PM CDT Pulse 83 11/05/2019 3:18 PM CDT Temperature 36.8 C (98.3 F) 11/05/2019 3:18 PM CDT Respiratory Rate 16 11/05/2019 3:18 PM CDT Oxygen Saturation 93% 11/05/2019 3:18 PM CDT Inhaled Oxygen Concentration - - Weight 63.1 kg (139 lb 3.2 oz) 11/05/2019 3:18 P M CDT Height 163.8 cm (5' 4.5) 11/05/2019 3:18 PM CDT Body Mass Index 23.52 11/05/2019 3:18 PM CDT Plan of Treatment Not on file Insurance Care Teams Seam Rubber Relationship Specialty Start Date End Date Estiven Pringle DO PCP - General Family Medicine 07/04/19
--- OUTSIDE RECORDS SUMMARY | 2025-02-05 06:59 | XMS_ITS | Clinical Summary ---
Author Organization [facility] Address [address] [place] [address] Care Team Providers Care Pump Installer Name Role Phone Paulette Guan JAMILA-LOGISTICS COORDINATOR Primary Care Provider Source Comments [facility],non-owned Affiliates and Associated Physician Practices is amultiple site organization consisting of ambulatory clinics and hospital sitesin [place], [place], [place] and [place]. This disclosure is being madepursuant to the Care Everywhere program and may not contain all information available regarding this patient. Last updated 18.[facility] Allergies Active Allergy Reactions Criticality Noted Date Comments Sucralfate Swelling 01/12/2013 Penicillins Anaphylaxis High 02/06/2010 Medications * Be aware that medications may not be up to date on this document. Alwaysverify current medications with the patient. famotidine (PEPCID) 20 MG tablet Take 1 Tab by mouth 2 times daily. 60 Tab 0 02/09/2010 Active Multiple Vitamin (MULTI VITAMIN DAILY PO) Take 1 Tab by mouth once daily Active B Complex Vitamins (B COMPLEX PO) Take 1 Tab by mouth once daily Active calcium 500 mg TABS tablet Take 500 mg by mouth once daily Active traMADol (ULTRAM) 50 MG tablet Take 1 Tab by mouth every 4 hours as needed for Pain 40 Tab 07/03/2016 Active Active Problems Problem Noted Date Diagnosed Date Supervision of other high-risk 013 Overview (03/30/2015): Dating by wk documented ultrasound B+/I/-/-; HIV NR QS wnl GBS neg contractions 01/12/2013 A1GDM 01/12/2013 Overview (01/12/2013): H/o GDM in G3 GCT 182 GTT normal in first trimester GTT at 27w: 81, 187, 187, 89 Not requiring medications Immunizations Immunization Administration Dates Next Due INFLUENZA VACCINE 03/17/2013 TDAP (7yrs+) 03/17/2013 Family History Medical History Relation Name Comments Heart Disease Father Diabetes Maternal Grandmother Diabetes Maternal Uncle Allergies Mother Asthma Mother COPD - Chronic Obstructive Pulmonary Disease Mother Emphysema Mother Stroke Mother Arthritis Neg Hx Bleeding Disorders Neg Hx Cancer Neg Hx Clotting Disorder Neg Hx Genetic/Metabolic Disease Neg Hx Hypertension Neg Hx Kidney Disease Neg Hx Multiple Births Neg Hx Labor Neg Hx Sickle Cell Anemia Neg Hx Toxemia Neg Hx Tuberculosis Neg Hx Twins Neg Hx Relation Name Status Comments Father Maternal Grandmother Maternal Uncle Mother Social History Tobacco Use Types Packs/Day Years Used Date Smoking Tobacco: Never Smokeless Tobacco: Never Alcohol Use Standard Drinks/Week Comments No 0 (1 standard drink = 0.6 oz pur e alcohol) Comments No Sex and Gender Information Value Date Recorded Sex Assigned at Not on file Legal Sex Female 9:21 AM MANAGER TESTING Gender Identity Not on file Sexual Orientation Not on file Last Filed Vital Signs Vital Sign Reading Time Taken Comments Blood Pressure 102/61 12/27/2017 10:00 PM CDT Pulse 64 12/27/2017 10:12 PM CDT Temperature 36.8 C (98.3 F) 12/27/2017 6:12 PM CDT Respiratory Rate 22 12/27/2017 10:12 PM CDT Oxygen Saturation 98% 12/27/2017 10:12 PM CDT Inhaled Oxygen Concentration - - Weight 54.4 kg (120 lb) 12/27/2017 6:12 PM CDT Height 162.6 cm (5' 4) 04/11/2017 2:10 PM MANAGER TESTING Body Mass Index 20.6 04/11/2017 2:10 PM MANAGER TESTING Plan of Treatment Health Maintenance Due Date Last Done Comments LIPID TESTING 1985 MAMMOGRAM 1985 HIV SCREENING 11/04/1999 HEPATITIS C SCREENING 10/30/2002 HEPATITIS B VACCINE (1 of 3 - 19+ 3-dose series) 11/04/2003 HPV VACCINE (1 - 3-dose SCDM series) 11/04/2011 DTAP/TDAP/TD VACCINES (2 - T d or Tdap) 03/17/2023 03/17/2013 DEPRESSION SCREENING 05/23/2024 COVID-19 VACCINE (1 2023-2 5 season) 2025 INFLUENZA VACCINE (#1) 2025 4, 03/17/2013 ZOSTER VACCINE (1 of 2) 2034 HIB VACCINE Aged Out No longer eligi ble based on patient's age to complete this topic MENINGOCOCCAL (Group B) VACCINE SHARED DECISION-MAKING Aged Out No longer eligible based on patient's age to complete this topic MENINGOCOCCAL GROUPS A/C/Y/W VACCINE Aged Out No longer eligible b ased on patient's age to complete this topic PNEUMOCOCCAL VACCINE Aged Out No long er eligible based on patient's age to complete this topic [place] [address] [place] [address] MEDICAID - OUT OF [facility] [place]ICAID - [place] [facility] Member Subscriber Plan / Payer (Ef fective 2017-Present) Name:Weimark anthony Sergey Relation to Subscriber:Self Name:Sergey Ferro Payer ID:Not on file Type:[facility] Address: [address] [place] [id number] MEDICAID [employer] [place] * Guarantor: SERGEY ONOFRE Account Type Relation to Patient Date of Phone Billing Address Personal/Family [address] [phone] [place] - [place] * Guarantor: Account Type Relation to Patient Date of Phone Billing Address Personal/Family [address] [phone] Advance Directives * Full Code (Latest Code Status on File) Date Activated Date Inactivated Comments 07/28/2016 4:51 PM 07/30/2016 8:57 PM * Full Code Date Activated Date Inactivated Comments 07/02/2016 4:18 PM 07/03/2016 1:49 PM * Full Code Date Activated Date Inactivated Comments 07/02/2016 3:48 PM 07/02/2016 4:18 PM * FULL RESUSCITATION Date Activated Date Inactivated Comments 03/16/2013 12:37 AM 03/18/2013 3:00 PM * FULL RESUSCITATION Date Activated Date Inactivated Comments 01/11/2013 11:59 PM 01/13/2013 8:06 PM Care Teams Pump Installer Relationship Specialty Start Date End Date Paulette Guan APRN-MANUEL [address] [place] [id number] PCP - General 06/18/16
[2025-02-05 07:36] LABS: Glucose Fasting Gestational 95 mg/dL (>/=95)
[2025-02-05 09:01] LABS: Glucose 1 Hour Gest 189 mg/dL (>/=180)
[2025-02-05 10:20] LABS: Glucose 2 Hour Gest 105 mg/dL (>/= 155)
[2025-02-05 11:32] LABS: Glucose 3 Hour Gest 46 mg/dL (>/=140)
== END 2025-02-05 06:55 | disposition home or self-care (01) ==
LOC: ANHLAB 06:56
PROVIDERS: PCP Family Medicine; Visit Provider Family Medicine
DX: Z09 Encounter for follow-up examination after completed treatment for conditions other than malignant neoplasm (principal)
CPT/HCPCS: 36415; 82951; 82952